=== PATIENT | male | born 1970 | race Caucasian/White ===

== ENCOUNTER 2024-07-23 08:28 | Inpatient (IN) | payer SELFPAY ==
[~2024-07-23] VITALS: Ht 182.9 cm; Wt 113.4 kg
[2024-07-23 08:50] VITALS: TEMP 97.7
[2024-07-23] MEDS: ONDANSETRON HCL INJ 2MG/ML 2ML 2 MG/ML VIAL IV STA ×2 (10:06→11:21)
[2024-07-23] MEDS: SODIUM CHLORIDE 0.9% 1000ML 1,000 ML IV STA (10:06)
[2024-07-23 11:22] VITALS: PULSE 84; RESP 18
[2024-07-23] MEDS ORDERED: ACETAMINOPHEN 325 MG TAB PO PRN (13:15)
[2024-07-23] MEDS ORDERED: HYDRALAZINE HCL 20 MG/ML VIAL IV PRN (13:15)
[2024-07-23] MEDS: SODIUM CHLORIDE 0.9% 1000ML 1,000 ML IV SCH (14:36)
[2024-07-23] MEDS: AMLODIPINE BESYLATE 10 MG TAB PO SCH (14:42)
[2024-07-23] MEDS: ONDANSETRON HCL INJ 2MG/ML 2ML 2 MG/ML VIAL IV PRN (14:46)
[2024-07-23] MEDS: AMLODIPINE BESYLATE 5 MG TAB PO ONE (15:16)
[2024-07-23 15:41] LABS: ANION GAP 26.1 mmol/L (8-16); CALCIUM 9.7 mg/dL (8.4-10.2); CREATININE, SERUM 4.54 mg/dL (0.72-1.25)
[2024-07-23 15:42] LABS: POTASSIUM 3.1 mmol/L (3.5-5.1)
[2024-07-23 16:18] VITALS: BP 123/80; PULSE 85; RESP 17; TEMP 98.1; O2SAT 100
[2024-07-23] MEDS: Morphine 2mg Syringe 2 MG/ML SYR IV PRN (17:10)
[2024-07-23 20:00] VITALS: BP 140/83; PULSE 73; RESP 18; TEMP 97.7; O2SAT 98
[2024-07-23] MEDS: ZOLPIDEM TARTRATE 10 MG TAB PO PRN (21:05)
[2024-07-24] VITALS (9 sets, daily range): BP systolic 123–153; BP diastolic 78–88; PULSE 74–85; RESP 17–20; TEMP 97.7–98.5; O2SAT 96–100
[2024-07-24] MEDS: HYDROMORPHONE 1MG/1ML INJ IV STA (00:11)
[2024-07-24] MEDS ORDERED: PAXIL40 MG PO (00:17)
[2024-07-24] MEDS ORDERED: AMLODIPINE BESY10 MG PO (00:17)
[2024-07-24] MEDS ORDERED: PANTOPRAZOLE SO40 MG PO (00:18)
[2024-07-24 06:33] LABS: BASOPHILS % 0.3 % (0.0-1.0); HEMATOCRIT 40.8 % (38.2-49.6); HEMOGLOBIN 14.9 g/dL (14.0-18.0); LYMPHOCYTES # (AUTO) 0.9 (1.0-3.2); LYMPHOCYTES % 8.6 % (18.0-39.1); MEAN CORPUSCULAR HEMOGLOBIN 33.4 pg (28-32); MEAN CORPUSCULAR HGB CONC 36.5 g/dL (31-35); MEAN CORPUSCULAR VOLUME 91.5 fL (81-99); MONOCYTES % 10.3 % (4.4-11.3); NEUTROPHILS # (AUTO) 7.9 (2.1-6.9); NEUTROPHILS % 80.5 % (38.7-80.0); PLATELET COUNT 182 x10e3/uL (140-360); RED BLOOD COUNT 4.46 x10e6/uL (4.3-5.7); RED CELL DISTRIBUTION WIDTH 11.9 % (11.7-14.4); WHITE BLOOD COUNT 9.87 x10e3/uL (4.8-10.8)
[2024-07-24 07:09] LABS: ANION GAP 20.3 mmol/L (8-16); CALCIUM 10.1 mg/dL (8.4-10.2); CREATININE, SERUM 3.03 mg/dL (0.72-1.25)
[2024-07-24 07:19] LABS: POTASSIUM 3.3 mmol/L (3.5-5.1)
[2024-07-24] MEDS: PROMETHAZINE 12.5MG/ NACL 0.9% 12.5 MG/50 ML BAG IV ONE (09:26)
[2024-07-24] MEDS: PANTOPRAZOLE SODIUM 20 MG TABLET.DR PO SCH (09:27)
[2024-07-24] MEDS: LORAZEPAM INJ 2 MG/ML VIAL IV PRN (12:54)
[2024-07-24] MEDS: POTASSIUM CHLORIDE 10MEQ/100ML 100 ML IV ONE (13:06)
[2024-07-24] MEDS: METOCLOPRAMIDE HCL 10 MG/2ML VIAL IV PRN (15:09)
[2024-07-24] MEDS: Morphine 4mg INJECTION 4 MG/ML INJ IV PRN (19:09)
[2024-07-25] VITALS (8 sets, daily range): BP systolic 129–156; BP diastolic 85–90; PULSE 78–98; RESP 17–20; TEMP 97.1–98.6; O2SAT 98–100
[2024-07-25 06:04] LABS: ANION GAP 12.4 mmol/L (8-16); CALCIUM 9.7 mg/dL (8.4-10.2); CREATININE, SERUM 1.45 mg/dL (0.72-1.25)
[2024-07-25 06:09] LABS: POTASSIUM 3.4 mmol/L (3.5-5.1)
[2024-07-25] MEDS: POTASSIUM CHLORIDE 20 MEQ TAB CR PO ONE (13:30)
[2024-07-25] MEDS: Morphine 2mg Syringe 2 MG/ML SYR IV PRN (16:37)
[2024-07-25] MEDS: CHLORDIAZEPOXIDE HCL 25 MG CAP PO PRN (17:36)
[2024-07-26 03:36] VITALS: BP 132/85; PULSE 80; RESP 18; TEMP 98; O2SAT 100
[2024-07-26 03:44] VITALS: BP 138/92; PULSE 80; RESP 18; TEMP 97.8; O2SAT 100
[2024-07-26 05:49] LABS: ANION GAP 14.1 mmol/L (8-16); CALCIUM 8.9 mg/dL (8.4-10.2); CREATININE, SERUM 1.13 mg/dL (0.72-1.25); POTASSIUM 4.1 mmol/L (3.5-5.1)
[2024-07-26 07:26] VITALS: BP 134/90; PULSE 77; RESP 17; TEMP 97.8; O2SAT 96
[2024-07-26 10:03] VITALS: BP 134/90; PULSE 77; RESP 17; TEMP 97.8; O2SAT 96
[2024-07-26 10:57] VITALS: BP 148/81; PULSE 72; RESP 19; TEMP 97.9; O2SAT 100
[2024-07-26] MEDS: ACETAMINOPHEN/CODEINE 300MG - 30MG TAB PO PRN (11:02)
[2024-07-26] MEDS ORDERED: PANTOPRAZOLE SO40 MG PO (11:48)
[2024-07-26] MEDS ORDERED: CHLORDIAZEPOXID10 MG PO (11:48)
[2024-07-26] MEDS ORDERED: ACETAMINOPHEN325 M1 PO (11:48)
== END 2024-07-26 13:04 | disposition home or self-care (01) | DRG 682 ==
LOC: FSED 08:40 → ERHOLD 12:44 → MED/SURG2 13:36
PROVIDERS: ADMIT Internal Medicine; ATTEND Internal Medicine
DX: N17.9 Acute kidney failure, unspecified (principal); K85.20 Alcohol induced acute pancreatitis without necrosis or infection; E87.1 Hypo-osmolality and hyponatremia; E86.0 Dehydration; R42 Dizziness and giddiness; R73.9 Hyperglycemia, unspecified; I10 Essential (primary) hypertension; K21.9 Gastro-esophageal reflux disease without esophagitis; F41.9 Anxiety disorder, unspecified; F32.A Depression, unspecified; G47.00 Insomnia, unspecified; Z11.52 Encounter for screening for COVID-19; F10.10 Alcohol abuse, uncomplicated; H57.04 Mydriasis; T50.995A Adverse effect of other drugs, medicaments and biological substances, initial encounter; X30.XXXA Exposure to excessive natural heat, initial encounter; F17.290 Nicotine dependence, other tobacco product, uncomplicated; Z82.49 Family history of ischemic heart disease and other diseases of the circulatory system
CPT/HCPCS: 0223U; 36415; 70450; 71250; 74176; 76700; 80048; 80053; 80307; 81003; 82550; 83690; 85025; 87400; 93005; 96361; 99252; 99284; J1170; J2060; J2270; J2405; J2550; J2765; J3480; J7030